=== PATIENT | female | born 1975 | race Caucasian/White ===

== ENCOUNTER 2016-04-22 17:30 | Outpatient (CLI) | payer OTHER ==
[~2016-04-22] VITALS: Ht 172.7 cm; Wt 85.0 kg
[~2016-04-22 17:30] MED LIST: BUSP5TA PO; LOVE1INJ SC; MULTTAB4 PO; PRENTAB40 PO; ULTR50TA PO; WELL100T2 PO; ZANA4TAB PO; [UNRECOGNIZED DRUG - OTHER] PO
[2016-04-22 17:43] VITALS: BP 130/71
[2016-04-22] MEDS ORDERED: [UNRECOGNIZED DRUG - CODE] SUBQ (18:16)
[2016-04-24] MEDS ORDERED: COLA100C PO (14:21)
== END 2016-04-22 19:56 | disposition home or self-care (01) ==
LOC: M LDO 17:30
PROVIDERS: ATTEND Advanced Practice Midwife
DX: O47.1 False labor at or after 37 completed weeks of gestation (principal); Z3A.38 38 weeks gestation of pregnancy; Z79.01 Long term (current) use of anticoagulants; O09.523 Supervision of elderly multigravida, third trimester

== ENCOUNTER 2016-04-22 22:47 | Inpatient (IN) | payer OTHER ==
[~2016-04-22] VITALS: Ht 172.7 cm; Wt 89.0 kg
[~2016-04-22 22:47] MED LIST changes: +[UNRECOGNIZED DRUG - CODE] SUBQ
[2016-04-22] MEDS ORDERED: MEASLES,MUMPS,RUBELLA VACCINE INJ (MMR-II) (90707) SC SCH (23:45)
[2016-04-22] MEDS ORDERED: DOCUSATE SODIUM 100 MG CAP PO PRN (23:45)
[2016-04-22] MEDS ORDERED: METHYLERGONOVINE MALEATE 0.2 MG TAB PO PRN (23:45)
[2016-04-22] MEDS ORDERED: DIBUCAINE 1% OINTMENT 30GM TOP PRN (23:45)
[2016-04-22] MEDS ORDERED: IBUPROFEN 800 MG TAB PO PRN (23:45)
[2016-04-22] MEDS ORDERED: RHOGAM 300 MCG (1500 IU) INJ (J2790) IM SCH (23:45)
[2016-04-23 01:44] VITALS: BP 139/72
[2016-04-23] MEDS: ACETAMINOPHEN 500 MG TAB PO PRN ×3 (03:17→18:57)
[2016-04-23 05:38] VITALS: BP 111/54
[2016-04-23] MEDS: PRENATAL VITAMIN TAB PO SCH (09:16)
[2016-04-23] MEDS: ENOXAPARIN 40 MG/0.4 ML SYRINGE (J1650) SC SCH (09:20)
[2016-04-23 18:00] VITALS: BP 144/75
[2016-04-24] MEDS: ACETAMINOPHEN 500 MG TAB PO PRN (04:34)
[2016-04-24 06:00] VITALS: BP 111/68
[2016-04-24] MEDS: PRENATAL VITAMIN TAB PO SCH (09:41)
[2016-04-24] MEDS: ENOXAPARIN 40 MG/0.4 ML SYRINGE (J1650) SC SCH (09:41)
[2016-04-24] MEDS ORDERED: MOTR200T44 PO (14:19)
[2016-04-24] MEDS ORDERED: LOVE1INJ SC (14:19)
[2016-04-24] MEDS ORDERED: TYLE500T78 PO (14:19)
[2016-04-24] MEDS ORDERED: COLA100C3 PO (14:21)
== END 2016-04-24 16:10 | disposition home or self-care (01) | DRG 775 ==
LOC: M LDO 22:47 → M LDI 22:55 → M OBS 04-23 01:43
PROVIDERS: ADMIT Advanced Practice Midwife; ATTEND Advanced Practice Midwife
PROC: 10E0XZZ Delivery of Products of Conception, External Approach (ICD-10-PCS; principal; 2016-04-22)
DX: O69.89X0 Labor and delivery complicated by other cord complications, not applicable or unspecified (principal); Z3A.38 38 weeks gestation of pregnancy; O09.523 Supervision of elderly multigravida, third trimester; Z37.0 Single live birth

== ENCOUNTER 2016-08-01 00:05 | Emergency (ER) | payer OTHER ==
[~2016-08-01] VITALS: Ht 175.3 cm; Wt 68.0 kg
[~2016-08-01 00:05] MED LIST changes: +COLA100C3 PO; +MOTR200T44 PO; +TYLE500T78 PO
[2016-08-01] MEDS ORDERED: PRENTAB52 PO (00:40)
[2016-08-01 00:41] VITALS: BP 136/84
--- NOTE | 2016-08-01 03:00 | REP ---
Clinical: Trauma. Technique: Axial noncontrast images through the facial bones to include the mandible with coronal and sagittal re-formations. Findings: The osseous structures are intact and there is no evidence for fracture or dislocation. Specifically, the bilateral zygomatic arches, nasal bones, and mandible including bilateral temporomandibular joints appear normal and symmetric. The sinuses and mastoid air cells are all well aerated and clear without fluid level to suggest occult trauma. Incidental note is made of a 1.3 cm mucocele in the left maxillary sinus. The bilateral orbits including the globes and intraconal contents appear symmetric and normal. The surrounding soft tissues are grossly unremarkable. Impression: Normal maxillofacial CT. No evidence for acute pathology or trauma/injury. Signed by Thomas Cooley MD 08/01/2016 02:53 A
[2016-08-01] MEDS ORDERED: ACETAMINOPHEN TAB 650MG DOSE (2X325MG) PO ONE (03:30)
== END 2016-08-01 03:38 | disposition home or self-care (01) ==
LOC: EDBD 00:05 → M ED 03:19
DX: S00.93XA Contusion of unspecified part of head, initial encounter (principal); T14.8 Other injury of unspecified body region; Y04.8XXA Assault by other bodily force, initial encounter; Y92.099 Unspecified place in other non-institutional residence as the place of occurrence of the external cause; Y99.9 Unspecified external cause status; Y93.9 Activity, unspecified; Z79.899 Other long term (current) drug therapy

== ENCOUNTER 2017-05-09 10:32 | Emergency (ER) | payer OTHER ==
[2017-05-09 12:09] LABS: BASO % 0.2 % (0.0-1.0); EOS # 0.3 10^3/uL (0.0-0.50); EOS % 2.4 % (0.0-3.0); HEMATOCRIT 39.5 % (36.0-47.0); HEMOGLOBIN 13.4 g/dl (12.0-16.0); IMMATURE GRANULOCYTE % 0.4 % (0-3.0); LYMPH # 1.1 10^3/uL (1.5-4.5); MEAN CORPUSCULAR HEMOGLOBIN 30.2 pg (27.0-33.0); MEAN CORPUSCULAR HGB CONC 33.9 g/dl (32.0-36.5); MEAN CORPUSCULAR VOLUME 89.2 fl (80.0-96.0); MONO # 0.6 10^3/uL (0.0-0.8); MONO % 5.4 % (0.0-5.0); NEUTROPHILS # 8.9 10^3/uL (1.8-7.7); NEUTROPHILS % 81.6 % (36.0-66.0); PLATELET COUNT, AUTOMATED 182 10^3/uL (150-450); RED BLOOD COUNT 4.43 10^6/uL (4.00-5.40); RED CELL DISTRIBUTION WIDTH 12.4 % (11.5-14.5); WHITE BLOOD COUNT 10.9 10^3/uL (4.0-10.0)
[2017-05-09 12:24] LABS: ANION GAP 5 MEQ/L (8-16); BLOOD UREA NITROGEN 8 MG/DL (7-18); CARBON DIOXIDE LEVEL 28 MEQ/L (21-32); CHLORIDE LEVEL 105 MEQ/L (98-107); GLOMERULAR FILTRATION RATE > 60.0 (>58); GLUCOSE, FASTING 88 MG/DL (70-100); POTASSIUM SERUM 3.8 MEQ/L (3.5-5.1); SODIUM LEVEL 138 MEQ/L (136-145)
[2017-05-09 12:28] LABS: LACTIC ACID SEPSIS PROTOCOL 1.1 MMOL/L (0.4-2.0)
[2017-05-09 12:37] LABS: ERYTHROCYTE SEDIMENTATION RATE 43 mm/hr (0-20)
[2017-05-09] MEDS: CLINDAMYCIN 600 MG in APPROPRIATE DILUENT 1 EA IV (13:41)
[2017-05-09] MEDS: metroNIDAZOLE (FLAGYL) 500 MG TAB PO (14:50)
== END 2017-05-09 14:59 | disposition home or self-care (01) ==
LOC: M ED 10:32
DX: N61.0 Mastitis without abscess (principal); Z87.891 Personal history of nicotine dependence; Z79.899 Other long term (current) drug therapy
CPT/HCPCS: 76642

== ENCOUNTER 2017-05-10 10:58 | Emergency (ER) | payer OTHER | END 2017-05-10 13:04 | disposition home or self-care (01) | LOC: M ED 10:58 | DX: N61.0 Mastitis without abscess (principal); R11.0 Nausea; Z86.718 Personal history of other venous thrombosis and embolism; Z87.891 Personal history of nicotine dependence; Z79.899 Other long term (current) drug therapy; Z79.2 Long term (current) use of antibiotics | CPT/HCPCS: 99283 ==

== ENCOUNTER → 2017-06-01 | Outpatient (CLI) | payer OTHER | LOC: M RAD 13:32 | DX: Z53.9 Procedure and treatment not carried out, unspecified reason (principal) ==

== ENCOUNTER 2018-04-19 08:47 | Emergency (ER) | payer OTHER ==
[~2018-04-19] VITALS: Ht 172.7 cm; Wt 75.0 kg
[~2018-04-19 08:47] MED LIST changes: +ALIG4CAP PO; +CLIN150C14 PO; -COLA100C3 PO; +COLA100C5 PO; +FLAG500T PO; +IBUP-1022 PO; +IBUP80TA PO; +PRENTAB52 PO; +VITA100066 PO; +ZOFR4TAB14 PO; +[UNRECOGNIZED DRUG - CODE] SUBQ; -[UNRECOGNIZED DRUG - CODE] SUBQ
[2018-04-19] MEDS ORDERED: NS 1,000 ML IV ONE (09:15)
[2018-04-19 09:57] LABS: BASO % 0.7 % (0.0-1.0); EOS # 0.1 10^3/uL (0.0-0.50); EOS % 1.3 % (0.0-3.0); HEMATOCRIT 44.4 % (36.0-47.0); HEMOGLOBIN 14.7 g/dl (12.0-15.5); LYMPH # 1.3 10^3/uL (1.5-4.5); MEAN CORPUSCULAR HEMOGLOBIN 29.5 pg (27.0-33.0); MEAN CORPUSCULAR HGB CONC 33.1 g/dl (32.0-36.5); MEAN CORPUSCULAR VOLUME 89.2 fl (80.0-96.0); MONO # 0.3 10^3/uL (0.0-0.8); MONO % 7.3 % (0.0-5.0); NEUTROPHILS # 2.8 10^3/uL (1.8-7.7); NEUTROPHILS % 61.5 % (36.0-66.0); PLATELET COUNT, AUTOMATED 248 10^3/uL (150-450); RED BLOOD COUNT 4.98 10^6/uL (4.00-5.40); WHITE BLOOD COUNT 4.5 10^3/uL (4.0-10.0)
[2018-04-19 09:58] LABS: AMYLASE 56 U/L (25-115); BLOOD UREA NITROGEN 12 MG/DL (7-18); CALCIUM LEVEL 8.6 MG/DL (8.5-10.1); CARBON DIOXIDE LEVEL 29 MEQ/L (21-32); CHLORIDE LEVEL 108 MEQ/L (98-107); CREATININE FOR GFR 0.66 MG/DL (0.55-1.30); GLOMERULAR FILTRATION RATE > 60.0 (>58); GLUCOSE, FASTING 68 MG/DL (70-100); LIPASE 134 U/L (73-393); POTASSIUM SERUM 3.9 MEQ/L (3.5-5.1); SODIUM LEVEL 142 MEQ/L (136-145)
[2018-04-19] MEDS ORDERED: KETOROLAC 30 MG/ML VIAL (J1885) IV ONE (10:00)
[2018-04-19] MEDS ORDERED: ISOVUE-370 76% 100ML VIAL (Q9967) As Ordered ONE (10:01)
[2018-04-19] MEDS ORDERED: IBUP1TAB7 PO (10:57)
--- NOTE | 2018-04-19 11:01 | REP ---
CT ABDOMEN AND PELVIS WITH IV CONTRAST ONLY: 04/19/2018. Clinical history: Left lower quadrant pain. Technique: Bolus of 100 mL Isovue 370 scanning through the abdomen and pelvis with coronal and sagittal reconstructions provided. Findings: CT abdomen: No prior study. Lung bases are clear. The heart is not enlarged and no pericardial thickening or effusion. The liver, spleen, gallbladder, pancreas, adrenal glands and kidneys were unremarkable. No hydronephrosis or hydroureter and no renal, ureteral or bladder stone. Small bowel loops grossly unremarkable. Colon without signs of colitis or diverticulitis. There is no perforation or free air on lung window review of all slices. No ascites or adenopathy. The aorta is without aneurysm or dissection. There is no periaortic, retroperitoneal or mesenteric pathologic sized lymphadenopathy. Bone windows show lumbar spine with degenerative disc changes at L4-5 and vacuum phenomenon. No spondylolysis or spondylolisthesis. Lower thoracic spine and ribs grossly intact. CT pelvis: Sacrum, pelvis, hips, SI joints and pubic rami all unremarkable. Bladder partially filled and without stone, wall thickening or mass. Uterus tilted slightly to the right of midline upper limits normal size. There is an IUD in the body and fundus of the uterus centrally. There is a 5.5 x 5.3 x 4.8 cm cyst in the left adnexa, it deviates the uterus towards the right of midline. I do not see any adnexal mass or cyst on the left. A couple of small follicles are seen in that ovary. In the deep pelvis the distal left colon, sigmoid and rectum are without signs of colitis or diverticulitis. There are no inflammatory changes about the cecum. No ventral or inguinal hernia seen. Impression: 1. 5.5 x 5.2 x 4.8 cm cyst in the left ovary. This slightly displaces the uterus towards the right. No pelvic free fluid. Right ovary normal. 2. Uterus with IUD centrally in the body and fundus. 3. A there is no colitis, diverticulitis, stricture, mass, ascites, adenopathy or free air. 4. Bones unremarkable except for some degenerative disc changes at the L4-5 level. 5. The solid organs in the upper abdomen are unremarkable. Electronically Signed by Sean Sal MD 04/19/2018 07:48 P
[2018-04-19 11:08] VITALS: BP 112/61
--- NOTE | 2018-04-22 07:32 | ED PDOC ---
Post-Departure Follow-Up ft shaun irene and dr lara faxed formal report of ct abd/p for fu Brianna Gómez MD Apr 22, 2018 07:32
== END 2018-04-19 11:12 | disposition home or self-care (01) ==
LOC: M ED 08:47
DX: N83.202 Unspecified ovarian cyst, left side (principal); R11.0 Nausea; Z86.718 Personal history of other venous thrombosis and embolism
CPT/HCPCS: 74177; 80048; 81001; 81025; 82150; 83690; 85025; 87086; 96374; 99284; J1885; Q9967

== ENCOUNTER → 2018-11-13 | Outpatient (CLI) | payer OTHER ==
[~2018-11-13] MED LIST changes: +IBUP1TAB7 PO
--- NOTE | 2018-11-13 10:14 | REP ---
BILATERAL SCREENING DIGITAL MAMMOGRAM WITH 3D TOMOSYNTHESIS: There are no palpable abnormalities or other breast complaints. The the patient states she has not had a clinical breast examination in over a year. The the patient states she performs self-breast examinations 12 times per year. The Tyrer Cuzick Score is: 13.0% . Comparison is 11/25/2013. The breasts are heterogeneously dense, which could obscure small masses. There is no dominant mass, micro calcific cluster or architectural distortion that would indicate malignancy. On 3-D tomosynthesis appears to be air within a duct inferomedially in the left breast. This is of uncertain significance, however, the patient has a history of left breast mastitis on ultrasound of 05/09/2017. There is no evidence of mastitis on the current mammogram. Impression: BIRADS/ACR category 2 mammogram. Benign findings. No evidence of malignancy. There is air within a duct inferomedially in the left breast as discussed, of uncertain significance. The patient is a history of left breast mastitis. Recommendation: Clinical evaluation of the left breast for mastitis. Routine annual screening mammography. Because of the increased breast density, annual adjunctive breast MRI in addition to screening mammography is recommended. These can be performed at alternating six month intervals. This mammogram was interpreted with the aid of a FDA approved computer-aided detection system. A. Negative mammogram reports should not delay biopsy if a dominant or clinically suspicious mass is present. B. Not all breast cancers are identified by mammography or tomosynthesis. C. Adenosis and dense breasts may obscure an underlying neoplasm. Patient letter M1 dense breasts. Electronically Signed by Steve Uriostegui MD 11/13/2018 10:05 A
== END ==
LOC: M WHC 08:13
PROVIDERS: ATTEND Physician Assistant Medical
DX: Z12.31 Encounter for screening mammogram for malignant neoplasm of breast (principal)

== ENCOUNTER 2019-03-28 15:35 | Emergency (ER) | payer OTHER ==
[~2019-03-28] VITALS: Ht 172.7 cm; Wt 65.0 kg
[2019-03-28] MEDS ORDERED: ASPI81TA85 PO (15:42)
[2019-03-28] MEDS ORDERED: KETOROLAC TROMETHAMINE 10 MG TAB PO ONE (17:22)
[2019-03-28 17:36] LABS: BASO % 0.4 % (0.0-1.0); EOS # 0.1 10^3/uL (0.0-0.5); EOS % 2.1 % (0.0-3.0); HEMATOCRIT 42.7 % (36.0-47.0); HEMOGLOBIN 13.8 g/dl (12.0-15.5); LYMPH # 1.6 10^3/uL (1.5-5.0); LYMPH % 34.5 % (24.0-44.0); MEAN CORPUSCULAR HEMOGLOBIN 29.6 pg (27.0-33.0); MEAN CORPUSCULAR HGB CONC 32.3 g/dl (32.0-36.5); MEAN CORPUSCULAR VOLUME 91.4 fl (80.0-96.0); MONO # 0.3 10^3/uL (0.0-0.8); NEUTROPHILS # 2.6 10^3/uL (1.5-8.5); NEUTROPHILS % 55.8 % (36.0-66.0); PLATELET COUNT, AUTOMATED 192 10^3/uL (150-450); RED BLOOD COUNT 4.67 10^6/uL (4.00-5.40); WHITE BLOOD COUNT 4.7 10^3/uL (4.0-10.0)
[2019-03-28 17:50] LABS: INR 1.13; PROTHROMBIN TIME 14.2 SECONDS (11.8-14.0)
[2019-03-28 17:51] LABS: PARTIAL THROMBOPLASTIN TIME 31.1 SECONDS (25.0-38.4)
[2019-03-28 17:58] LABS: ALT/SGPT 21 U/L (12-78); BILIRUBIN,DIRECT 0.1 MG/DL (0.0-0.2); BILIRUBIN,TOTAL 0.2 MG/DL (0.2-1.0); C REACTIVE PROTEIN QUANTITATIV < 0.30 MG/DL (0.00-0.30); TOTAL PROTEIN 6.8 GM/DL (6.4-8.2)
--- NOTE | 2019-03-28 18:10 | REPVR ---
PROCEDURE INFORMATION: Exam: US Duplex Right Lower Extremity Veins, Limited Exam date and time: 03/28/2019 5:53 PM Age: 43 years old Clinical indication: Pain; Leg, lower; Right; Additional info: R/O dvt. Posterior pain/swelling TECHNIQUE: Imaging protocol: Real-time Duplex ultrasound of the Right Lower Extremity with 2-D brooks scale, color Doppler flow and spectral waveform analysis with image documentation. Limited exam was focused on the right lower extremity veins. COMPARISON: No relevant prior studies available. FINDINGS: Right deep veins: Unremarkable. The common femoral, femoral, proximal profunda femoral and popliteal veins are patent without thrombus. Normal Doppler waveforms. Normal compressibility and/or augmentation response. Right superficial veins: Unremarkable. Saphenofemoral junction is patent without thrombus. Soft tissues: Unremarkable. IMPRESSION: No acute findings. No evidence of deep vein thrombosis. Electronically signed by: Francisco Garcia On 03/28/2019 18:11:35 PM
[2019-03-28 18:14] LABS: ERYTHROCYTE SEDIMENTATION RATE 3 mm/hr (0-20)
[2019-03-28 18:52] VITALS: BP 113/65
== END 2019-03-28 18:54 | disposition home or self-care (01) ==
LOC: M ED 15:35
DX: R60.1 Generalized edema (principal); Z86.718 Personal history of other venous thrombosis and embolism; Z79.02 Long term (current) use of antithrombotics/antiplatelets

== ENCOUNTER → 2019-05-14 | Outpatient (REF) | payer OTHER ==
[~2019-05-14] MED LIST changes: +ASPI81TA85 PO
[2019-05-14 15:30] LABS: INFLUENZA A AMPLIFICATION NEGATIVE (NEGATIVE); INFLUENZA B AMPLIFICATION NEGATIVE (NEGATIVE)
== END ==
LOC: M LAB REF 12:23
PROVIDERS: ATTEND Physician Assistant
DX: J11.1 Influenza due to unidentified influenza virus with other respiratory manifestations (principal)

== ENCOUNTER → 2019-06-21 | Outpatient (CLI) | payer OTHER ==
--- NOTE | 2019-06-24 08:40 | SLEEPCENT ---
DATE OF PROCEDURE: 06/21/2019 ORDERED BY: MAO Isidro Nocturnal polysomnography was performed for evaluation of sleep physiology in this patient with a history of excessive somnolence, snoring, and nonrestorative sleep. 7 hours and 52 minutes of data were reviewed. There were 336 minutes of sleep identified. Sleep latency was prolonged 75.5 minutes. Rapid eye movement (REM) latency was prolonged at 139.5 minutes. Sleep architecture was fair with some fragmentation. There were 3 REM cycles noted. Overall sleep efficiency was 72.5%. The electrocardiogram showed a sinus rhythm with small complexes, average heart rate 56 beats per minute. Electroencephalogram (EEG) showed reasonably normal waveforms for awake and sleep. There were 33 respiratory events identified of 10 seconds in duration or greater for an apnea-hypopnea index of 5.9. The events were obstructive, not exclusive to sleep stage, not exclusive to body posture. Arousals from respiratory events occurred 5.5 times per hour. There were no significant oxygen desaturations below 90%. Some activity was noted in the limb electromyogram (EMG) leads. Limb movement arousal index was 3.6. IMPRESSION: Obstructive sleep apnea syndrome (G47.33). Apnea-hypopnea index 5.6. RECOMMENDATIONS: Given the patient's symptoms, referral back to the sleep disorder center is recommended for pressure therapy. In the interim, alcohol and sedative avoidance should be practiced and caution exercised during the operation of motor vehicles.
== END ==
LOC: M SLEEP 20:00
PROVIDERS: ATTEND Physician Assistant
DX: G47.33 Obstructive sleep apnea (adult) (pediatric) (principal)

== ENCOUNTER → 2019-07-20 | Outpatient (CLI) | payer OTHER ==
--- NOTE | 2019-07-30 10:19 | SLEEPCENT ---
DATE OF STUDY: 07/20/2019 ORDERING PROVIDER: ARPAN Isidro Nocturnal polysomnography was performed for titration of pressure therapy in this patient with obstructive sleep apnea syndrome, apnea-hypopnea index of 5.6. For testing, the patient was fit with a [employer] AirTouch 04/17/2019 full face mask of medium size. 4 cm of water pressure were applied to the circuit, and the lights were extinguished. 6 hours and 55 minutes of data were reviewed. There were 329 minutes of sleep identified. Sleep latency was mildly prolonged at 20 minutes. Rapid eye movement (REM) latency likewise at 200 minutes. Sleep architecture improved on optimal pressure therapy. There were two rapid eye movement (REM) cycles noted. Overall sleep efficiency was 80%. The patient's electrocardiogram showed a sinus rhythm with small complexes. Average heart rate was 60 beats per minute. Electroencephalogram (EEG) showed normal waveforms for awake and sleep. Respiratory events were optimally palliated with continuous positive airway pressure (CPAP) at a pressure of +8. IMPRESSION: Obstructive sleep apnea syndrome (G47.33). RECOMMENDATION: Nightly use of pressure therapy, 8 cm of water.
== END ==
LOC: M SLEEP 20:00
PROVIDERS: ATTEND Physician Assistant
DX: G47.33 Obstructive sleep apnea (adult) (pediatric) (principal)